=== PATIENT | male | born 1975 | race Caucasian/White ===

== ENCOUNTER → 2017-07-08 | Outpatient (CLI) | payer OTHER ==
[~2017-07-08] MED LIST: ALBUAER2 INH; CETI10TA84 PO; MONT1TAB5 PO; PRLSR20 PO; amitriptyline PO
--- NOTE | 2017-07-08 16:19 | DIAGNOSTIC IMAGING REPORT ---
ORBITS FOR MRI HISTORY: Pre-MRI pre-MRI screening. COMPARISON: None. FINDINGS: There are no radiopaque foreign bodies identified within the orbits. IMPRESSION: No radiopaque foreign bodies identified within the orbits. The above report was generated using voice recognition software. It may contain grammatical, syntax or spelling errors. Electronically signed by: Jelani Bartlett M.D. 07/08/2017 4:18 PM Dictated Date/Time: 07/08/2017 4:17 PM
--- NOTE | 2017-07-08 16:51 | DIAGNOSTIC IMAGING REPORT ---
LUMBAR SPINE W/O CONTRAST HISTORY: Pain. Radiculopathy. LOW BACK PAIN, DISC DISEASE TECHNIQUE: Multiplanar multisequence MRI of the lumbar spine was performed without the use of contrast. COMPARISON: None. FINDINGS: For the purpose of the report the L5-S1 disc space will be located on axial image 23 of 25. Significant degenerative disc change L4-L5 with a reactive edematous change of the associated endplates. Mild disc desiccation throughout the remaining components of the lumbar region. No pathologic bone marrow replacing process. No compression deformity. Instill note is made of what appears to be a partial fusion of the lower spinous processes of the thoracic region. L1-L2: No significant central canal or neural foraminal narrowing. L2-L3: No significant central canal or neural foraminal narrowing. L3-L4: No significant central canal or neural foraminal narrowing. L4-L5: Minimal broad-based disc bulge. Minimal impact anterior thecal sac. Minimal compromise of the neuroforamina. L5-S1: No significant central canal or neural foraminal narrowing. IMPRESSION: 1. Minimal broad-based disc bulge L4-L5 with minimal impact anterior thecal sac. 2. Minimal narrowing of the neuroforamina bilaterally at L4-L5. 3. Considerable degenerative disc change L4-L5. 4. 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 No significant disc herniation or spinal stenosis of the lumbar region. The above report was generated using voice recognition software. It may contain grammatical, syntax or spelling errors. Electronically signed by: Jelani Bartlett M.D. 07/08/2017 4:49 PM Dictated Date/Time: 07/08/2017 4:43 PM
== END | disposition home or self-care (01) ==
LOC: C.MRIBC 15:52
PROVIDERS: ATTEND Nurse Practitioner
DX: M51.9 Unspecified thoracic, thoracolumbar and lumbosacral intervertebral disc disorder (principal); M54.5 Low back pain; M42.00 Juvenile osteochondrosis of spine, site unspecified; M51.36 Other intervertebral disc degeneration, lumbar region

== ENCOUNTER 2017-09-12 17:49 | Emergency (ER) | payer OTHER ==
[~2017-09-12] VITALS: Ht 170.2 cm; Wt 63.9 kg
[2017-09-12 17:52] VITALS: TEMP 36.7; Ht 170.2 cm; Wt 63.9 kg
[2017-09-12] MEDS ORDERED: ONDANSETRON INJ 2 MG/ML 2 ML VIAL IV STA (18:49)
--- NOTE | 2017-09-12 18:58 | EMERGENCY ROOM VISIT NOTE ---
History First contact with patient: 18:35 Chief Complaint: OTHER COMPLAINT Stated Complaint: SEVERE INFECTION IN NOSE History of Present Illness The patient is a 41 year old male who presents to the Emergency Room with complaints of an infection in his nose that has been going on for approximately 1 week. The patient saw the [facility] 4 days ago. He was prescribed Bactroban cream and Bactrim by mouth, which she has been taking with no improvement. He also feels achy. He did not take his temperature at home. He notes pus draining out of the right side of his nose. He denies any difficulty swallowing. Review of Systems 6 system review negative. Please see pertinent positives in the history of present illness section. Past Medical/Surgical History Medical Problems: (1) Asthma Family History No significant family history Social History Smoking Status: Current Every Day Smoker Alcohol Use: none Drug Use: none Occupation Status: employed Current/Historical Medications Scheduled Amitriptyline Hcl (Elavil), 100 MG PO HS Cephalexin Monohydrate (Keflex), 500 MG PO QID Cetirizine Hcl (Zyrtec), 10 MG PO HS Doxycycline Hyclate (Vibramycin), 100 MG PO BID Montelukast Sod (Montelukast Sodium), 10 MG PO HS Omeprazole (Prilosec), 20 MG PO DAILY Scheduled PRN Albuterol Hfa (Ventolin Hfa), 2 PUFFS INH Q4-6HRS PRN for SOB/Wheezing Buspirone Hcl (Buspirone Hcl), 7.5 MG PO TID PRN for Anxiety Oxycodone/Acetaminophen 5MG/325MG (Percocet 5MG/325MG), 1 TAB PO Q4H PRN for Pain Physical Exam Vital Signs Date Time Temp Pulse Resp B/P (MAP) Pulse Ox O2 Delivery O2 Flow Rate FiO2 09/12/17 22:47 69 16 126/84 98 Room Air 09/12/17 17:52 36.7 70 16 145/89 98 Room Air Physical Exam VITALS: Vitals are noted on the nurse's note and reviewed by myself. Vital signs stable. GENERAL: 41-year-old male, obviously uncomfortable,, HEAD: Normocephalic atraumatic. EYES: Pupils equal round and reactive to light and accommodation. Conjunctivae without injection, sclerae without icterus. Extraocular movements intact. NOSE: Significant erythema and edema noted to the columella of the nose extending into both nostrils. There is purulent drainage from the right naris. Turbinates are erythematous and edematous. MOUTH: Mucous membranes moist. Tonsils are not enlarged. Pharynx without erythema or exudate. Uvula midline. Airway patent. Tongue does not deviate. NECK: Supple without nuchal rigidity. Lymphadenopathy noted in the anterior cervical chain. Cervical spine is nontender. No JVD. MUSCULOSKELETAL: Strength 5/5 throughout. NEURO: Patient was alert and oriented to person place and time. Normal sensation to touch. No focal neurological deficits. Medical Decision & Procedures ER Provider Diagnostic Interpretation: CT facial bones with contrast IMPRESSION: 1. Presumed inflammatory changes involving the anterior inferior nasal septum with a possible subcentimeter intraseptal abscess. 2. No evidence of airway compromise. 3. No evidence of pathologic adenopathy. 4. No evidence of acute sinusitis. Electronically signed by: Alcides Finch M.D. 09/12/2017 8:34 PM Dictated Date/Time: 09/12/2017 8:28 PM Laboratory Results 09/12/17 19:00 Red Blood Count 4.70, Mean Corpuscular Volume 90.2, Mean Corpuscular Hemoglobin 31.1, Mean Corpuscular Hemoglobin Concent 34.4, Mean Platelet Volume 11.6, Neutrophils (%) (Auto) 60.1, Lymphocytes (%) (Auto) 21.5, Monocytes (%) (Auto) 13.9, Eosinophils (%) (Auto) 3.5, Basophils (%) (Auto) 0.8, Neutrophils # (Auto ) 7.60, Lymphocytes # (Auto) 2.72, Monocytes # (Auto) 1.76, Eosinophils # (Auto ) 0.44, Basophils # (Auto) 0.10 09/12/17 19:00 Test 09/12/17 19:00 White Blood Count 12.65 K/uL (4.8-10.8) Red Blood Count 4.70 M/uL (4.7-6.1) Hemoglobin 14.6 g/dL (14.0-18.0) Hematocrit 42.4 % (42-52) Mean Corpuscular Volume 90.2 fL (80-100) Mean Corpuscular Hemoglobin 31.1 pg (25-34) Mean Corpuscular Hemoglobin Concent 34.4 g/dl (32-36) Platelet Count 247 K/uL (130-400) Mean Platelet Volume 11.6 fL (7.4-10.4) Neutrophils (%) (Auto) 60.1 % Lymphocytes (%) (Auto) 21.5 % Monocytes (%) (Auto) 13.9 % Eosinophils (%) (Auto) 3.5 % Basophils (%) (Auto) 0.8 % Neutrophils # (Auto) 7.60 K/uL (1.4-6.5) Lymphocytes # (Auto) 2.72 K/uL (1.2-3.4) Monocytes # (Auto) 1.76 K/uL (0.11-0.59) Eosinophils # (Auto) 0.44 K/uL (0-0.5) Basophils # (Auto) 0.10 K/uL (0-0.2) RDW Standard Deviation 42.8 fL (36.4-46.3) RDW Coefficient of Variation 13.0 % (11.5-14.5) Immature Granulocyte % (Auto) 0.2 % Immature Granulocyte # (Auto) 0.03 K/uL (0.00-0.02) Anion Gap 5.0 mmol/L (3-11) Est Creatinine Clear Calc Drug Dose 81.5 ml/min Estimated GFR () 97.5 Estimated GFR (Non- 84.1 BUN/Creatinine Ratio 9.5 (10-20) Calcium Level 9.5 mg/dl (8.5-10.1) Medications Administered Medications (Trade) Dose Ordered Sig/Anne Route Start Time Stop Time Status Last Admin Dose Admin Morphine Sulfate (MoRPHine SULFATE INJ) 4 mg ONE ONCE IV 09/12/17 19:00 09/12/17 19:01 DC 09/12/17 19:01 4 MG Ondansetron HCl (Zofran Inj) 4 mg NOW STAT IV 09/12/17 18:49 09/12/17 18:54 DC 09/12/17 19:01 4 MG Ketorolac Tromethamine (Toradol Inj) 30 mg NOW STAT IV 09/12/17 21:21 09/12/17 21:22 DC 09/12/17 21:39 30 MG Lidocaine HCl (Buffered Lidocaine 1% Inj) 20 ml NOW ONCE INFIL 09/12/17 21:30 10/20/17 21:31 DC 09/12/17 21:40 20 ML Ceftriaxone Sodium (Rocephin Inj) 1 gm NOW STAT IV 09/12/17 21:21 09/12/17 21:22 DC 09/12/17 21:40 1 GM Oxycodone/ Acetaminophen (Percocet 5/ 325MG Home Pack) 1 homepack UD ONCE PO 09/12/17 22:45 09/12/17 22:46 DC 09/12/17 22:42 1 HOMEPACK Oxycodone/ Acetaminophen (Percocet 5-325mg Tab) 2 tab NOW STAT PO 09/12/17 22:31 09/12/17 22:32 DC 09/12/17 22:38 2 TAB Procedure I examined the patient. Verbal consent was obtained to perform the procedure. After saline and Betadine cleansing and 2 mL of 1% buffered lidocaine anesthesia, the abscess was incised with a number 11 scalpel blade. A large amount of purulent material was released with more expressed by pressure. A swab was obtained for culture. 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 The abscess cavity was then copiously irrigated with sterile saline under pressure. The area was too small for packing. ED Course Patient was seen and examined Vital signs including blood pressure were reviewed medications list was verified with patient Labs were obtained, and a saline lock was established The patient was treated with morphine and Zofran for symptoms. Imaging was performed and reviewed. The patient was also seen by my supervising physician. An incision and drainage was performed. Please see my procedure note. The patient was given 2 Percocet for pain. He was given 1 dose of ceftriaxone I reviewed discharge instructions the patient. They voiced understanding and had no further questions. Medical Decision Differential diagnosis: Septal cellulitis, facial cellulitis, abscess, impetigo, This patient is a 41-year-old male presents emergency department with significant swelling and erythema to the nose. Labs revealed leukocytosis. Given the amount of swelling and erythema, I opted to CT the face to assess for abscess or ascending cellulitis. This revealed a subcentimeter abscess in the inferior portion of the nasal septum. The area was incised and drained. A culture was taken. The patient has had minimal response to Bactroban and Bactrim. It is possible that this is a strep infection. He was given 1 dose of Rocephin. His Bactrim was changed to doxycycline. Keflex was also added. This should give him good strep and MRSA coverage. A copious amount of purulent material was also expressed. The patient will need follow-up with ENT as soon as possible. He was given a short course of narcotics for pain. He agrees to return here with any new or worsening symptoms. This chart was completed in part utilizing [employer]click Speech Voice Recognition software. Attempts were made to minimize the grammatical errors, random word insertions, pronoun errors and incomplete sentences. Any formal questions or concerns about the content, text or information contained within the body of this dictation should be directly addressed to the provider for clarification. Medication Reconcilliation Current Medication List: was personally reviewed by me Blood Pressure Screening Patient's blood pressure: Elevated blood pressure Blood pressure disposition: Elevated BP felt to be situational Impression Primary Impression: Facial abscess Additional Impression: Nasal septal abscess Departure Information Dispostion Home / Self-Care Condition GOOD Prescriptions Oxycodone/Acetaminophen 5MG/325MG (PERCOCET 5MG/325MG) Tab 1 TAB PO Q4H Y for Pain, #10 TAB For Initial Treatment Prov: Deann Rubin PA-C 09/12/17 Doxycycline Hyclate (VIBRAMYCIN) 100 Mg Cap 100 MG PO BID for 7 Days, #14 CAP Prov: Deann Rubin PA-C 09/12/17 Cephalexin Monohydrate (Keflex) 500 Mg Cap 500 MG PO QID for 7 Days, #28 CAP Prov: Deann Rubin PA-C 09/12/17 Referrals Bella Jade C.R.N.P (PCP) Elizabeth Lofton M.D. Patient Instructions My [facility] Additional Instructions Please try to keep the area clean. Use gauze as needed for continued drainage. Please stop bacitracin and Mupirocin Please begin doxycycline 1 tab twice daily for 7 days Please begin Keflex 1 tab every 6 hours for 7 days. Ibuprofen 600 mg every 6 hours Percocet 1-2 tabs every 4 hours for severe pain. Do not drink alcohol or drive while taking this medication. This may be taken with ibuprofen, but avoid Tylenol. Please call Dr. Lofton, the ENT doctor on Friday for a follow-up appointment. If you have difficulty getting an appointment, please call back to the emergency department.[phone] Please return to the emergency department with any new or worsening symptoms such as increased redness, swelling, fever or difficulty with your vision Problem Qualifiers
[2017-09-12] MEDS ORDERED: OPTIRAY 320 IV PRN (19:00)
[2017-09-12] MEDS ORDERED: MoRPHine SULFATE 4 MG/ML 1 ML CARP\\VIAL IV ONE (19:00)
[2017-09-12] MEDS ORDERED: BUSP1TAB46 PO (19:01)
[2017-09-12] MEDS ORDERED: CETI10TA10 PO (19:01)
[2017-09-12] MEDS ORDERED: SNG10 PO (19:01)
[2017-09-12] MEDS ORDERED: AMIT100T2 PO (19:01)
[2017-09-12] MEDS ORDERED: VNTHFA/IN INH (19:01)
[2017-09-12] MEDS ORDERED: OMEP20CA9 PO (19:01)
[2017-09-12 19:18] LABS: BASO % 0.8 %; COMPLETE YES; EOS % 3.5 %; HEMATOCRIT 42.4 % (42-52); IG% 0.2 %; LYMPH % 21.5 %; LYMPH ABS # 2.72 K/uL (1.2-3.4); MEAN CELL VOLUME 90.2 fL (80-100); MEAN CORPUSCULAR HEMOGLOBIN 31.1 pg (25-34); MEAN CORPUSCULAR HGB CONC 34.4 g/dl (32-36); MEAN PLATELET VOLUME 11.6 fL (7.4-10.4); MONO % 13.9 %; NEUT % 60.1 %; PLATELET COUNT 247 K/uL (130-400); WHITE BLOOD COUNT 12.65 K/uL (4.8-10.8)
[2017-09-12 19:29] LABS: BUN/CREATININE RATIO 9.5 (10-20); CALCIUM 9.5 mg/dl (8.5-10.1); CREATININE 1.1 mg/dl (0.60-1.40)
--- NOTE | 2017-09-12 20:36 | DIAGNOSTIC IMAGING REPORT ---
CT FACIAL-MAXILLOFACIAL WITH CT DOSE: 143.89 mGy.cm CLINICAL HISTORY: severe infection in nasal septum TECHNIQUE: The patient was scanned in a dynamic helical fashion during intravenous administration of 103 cc Optiray 320. Coronal reformatted images were acquired A dose lowering technique was utilized adhering to the principles of ALARA. COMPARISON STUDY: None. FINDINGS: No salivary gland masses are visualized. No mucosal space masses are visualized. The visualized portions of the intracranial contents are unremarkable. No orbital masses are visualized. There is no pathologic adenopathy. There is no evidence of airway compromise. There is no evidence of acute sinusitis. There is thickening of the anterior nasal septum. There is a small fluid collection within the anterior inferior nasal septum. This could represent an abscess IMPRESSION: 1. Presumed inflammatory changes involving the anterior inferior nasal septum with a possible subcentimeter intraseptal abscess. 2. No evidence of airway compromise. 3. No evidence of pathologic adenopathy. 4. No evidence of acute sinusitis. Electronically signed by: Alcides Finch M.D. 09/12/2017 8:34 PM Dictated Date/Time: 09/12/2017 8:28 PM
[2017-09-12] MEDS ORDERED: CEFTRIAXONE SOD INJ 1 GM ADDVIAL IV STA (21:21)
[2017-09-12] MEDS ORDERED: KETOROLAC TROMETHAMINE 30 MG/ML VIAL IV STA (21:21)
[2017-09-12] MEDS ORDERED: XYLOCAINE 1%/SOD BICARB 20 ML VIAL INFIL ONE (21:30)
[2017-09-12] MEDS ORDERED: OXYCODONE/ACETAMINOPHEN 5-325 TAB PO STA (22:31)
[2017-09-12] MEDS ORDERED: CEPH500C PO (22:37)
[2017-09-12] MEDS ORDERED: DOXY100C PO (22:37)
[2017-09-12] MEDS ORDERED: OXYC-57 PO (22:38)
[2017-09-12] MEDS ORDERED: PERCOCET HOME PACK PO ONE (22:45)
[2017-09-12 22:47] VITALS: BP 126/84; PULSE 69; O2SAT 98
== END 2017-09-12 23:05 | disposition home or self-care (01) ==
LOC: C.EDB 17:51 → C.EDD 23:05
DX: J34.0 Abscess, furuncle and carbuncle of nose (principal); J45.909 Unspecified asthma, uncomplicated; F17.200 Nicotine dependence, unspecified, uncomplicated

== ENCOUNTER 2018-02-24 11:43 | Emergency (ER) | payer OTHER ==
[~2018-02-24] VITALS: Ht 170.2 cm; Wt 64.5 kg
[~2018-02-24 11:43] MED LIST changes: -ALBUAER2 INH; +AMIT100T2 PO; +BUSP1TAB46 PO; +CETI10TA10 PO; -CETI10TA84 PO; -MONT1TAB5 PO; +OMEP20CA9 PO; +OXYC-57 PO; -PRLSR20 PO; +SNG10 PO; +VNTHFA/IN INH; -amitriptyline PO
[2018-02-24 11:46] VITALS: TEMP 36.5; Ht 170.2 cm; Wt 64.5 kg
[2018-02-24] MEDS ORDERED: XYLOCAINE 1%/SOD BICARB 20 ML VIAL INFIL ONE (12:00)
--- NOTE | 2018-02-24 12:55 | DIAGNOSTIC IMAGING REPORT ---
L FINGER(S) MIN 2 VIEWS ROUTINE CLINICAL HISTORY: 42 years-old Male presenting with L 5th finger trauma. TECHNIQUE: Frontal, oblique, and lateral views of the left fifth finger were obtained. COMPARISON: None. FINDINGS: Nondisplaced longitudinally/obliquely oriented fracture of the tuft of the distal phalanx of the fifth finger. There is the greatest degree of cortical step-off along the volar aspect. Mild associated soft tissue swelling of the distal left fifth finger. No additional bony abnormality. IMPRESSION: Nondisplaced fracture of the tuft of the distal phalanx of the left fifth finger. Electronically signed by: Walter Bell M.D. 02/24/2018 12:53 PM Dictated Date/Time: 02/24/2018 12:52 PM
[2018-02-24] MEDS ORDERED: OXYC1TAB3 PO (13:05)
[2018-02-24 13:18] VITALS: BP 122/92; PULSE 72; O2SAT 98
--- NOTE | 2018-02-24 13:21 | EMERGENCY ROOM VISIT NOTE ---
History First contact with patient: 11:55 Chief Complaint: FINGER PAIN Stated Complaint: SEVERLY PINCHED LEFT PINKY FINGER History of Present Illness The patient is a 42 year old male who presents to the Emergency Room with complaints of trauma to the tip of his left fifth finger. The patient reports that he was using a saws all when his finger got pinched between the attachment plate and body of the cells all. The patient denies any significant bleeding. He rates his discomfort a 10 out of 10. He denies any pain extending into the middle or base of the finger. He reports that the fingertip feels numb. The patient is right-hand dominant. Tetanus immunization is up-to-date. Review of Systems 10 system review was performed and was negative except for pertinent positives and negatives as indicated in history of present illness Past Medical/Surgical History Medical Problems: (1) Asthma Medical Problems: (1) Asthma (2) Asthma, Unspecified (3) Fibromyalgia (4) Scheuermanns disease Family History No significant family history Social History Smoking Status: Current Every Day Smoker Alcohol Use: none Drug Use: none Occupation Status: employed Current/Historical Medications Scheduled Cetirizine Hcl (Zyrtec), 10 MG PO HS Montelukast Sod (Montelukast Sodium), 10 MG PO HS Omeprazole (Prilosec), 20 MG PO DAILY Scheduled PRN Albuterol Hfa (Ventolin Hfa), 2 PUFFS INH Q4-6HRS PRN for SOB/Wheezing Oxycodone Ir (Roxicodone Ir), 1-2 TAB PO Q4H PRN for Pain Physical Exam Vital Signs Date Time Temp Pulse Resp B/P (MAP) Pulse Ox O2 Delivery O2 Flow Rate FiO2 02/24/18 11:46 36.5 65 20 140/83 99 Room Air Physical Exam CONSTITUTIONAL: Healthy and well nourished. Alert and oriented X 3 with positive affect. Patient appears in moderately severe discomfort. HEENT: Normocephalic, atraumatic. Pupils equal, round and reactive. NECK: Full active range of motion without discomfort. MUSCULOSKELETAL: Examination of the left hand shows that the patient chews his nails. He has a very small superficial avulsion injury, measuring 2 cm in diameter. This injury is distal to the edge of the nail plate. The patient also has ecchymosis on the digital pad with no open wounds. The patient has no other focal tenderness to palpation of the DIP or PIP joint. Capillary refill is brisk and less than 2 seconds. On closer exam, using a sterile swab there was no extension of this wound into the underlying subcutaneous space. INTEGUMENTARY: No rash or other significant dermatologic conditions noted. NEUROLOGIC: No focal neurologic deficits noted. Left fifth fingertip is hyperesthetic. Medical Decision & Procedures ER Provider Diagnostic Interpretation: My interpretation of left fifth finger x-rays shows a nondisplaced tuft fracture. Radiologist report is as follows: L FINGER(S) MIN 2 VIEWS ROUTINE CLINICAL HISTORY: 42 years-old Male presenting with L 5th finger trauma. TECHNIQUE: Frontal, oblique, and lateral views of the left fifth finger were obtained. COMPARISON: None. FINDINGS: Nondisplaced longitudinally/obliquely oriented fracture of the tuft of the distal phalanx of the fifth finger. There is the greatest degree of cortical step-off along the volar aspect. Mild associated soft tissue swelling of the distal left fifth finger. No additional bony abnormality. IMPRESSION: Nondisplaced fracture of the tuft of the distal phalanx of the left fifth finger. ED Course Patient history and physical exam were performed. Nurse's notes were reviewed. Vital signs were reviewed and were normal. The patient does appear in notable discomfort and distress. I suggested performing a digital block, although the patient reports that he is horrified of needles. Digital block was administered using buffered 1% lidocaine. The patient had complete relief within approximately 3 minutes, and was happy that the digital block was administered. X-rays of the left fifth finger shows a nondisplaced tuft fracture. Because the wound does not extend into the underlying subcutaneous space, I will defer antibiotic treatment. The wound also does not require any type of primary closure. The patient was encouraged to keep the wound covered with an antibiotic ointment and dressing. Ice and elevation for swelling and pain. Ibuprofen and Tylenol in alternating fashion for baseline pain relief. The patient was provided a prescription for OxyIR 5 mg, dispense #15 with no refills. The patient was instructed to avoid drinking alcohol or driving while taking OxyIR. The patient may follow-up with his PCP or orthopedics as needed for any further wound concerns. The patient was happy with plan of care, voiced understanding of all discharge instructions, and denied any pain at the conclusion of my exam. Medical Decision Impression Primary Impression: Fracture of phalanx of left little finger Departure Information Dispostion Home / Self-Care Prescriptions Oxycodone Ir (Roxicodone Ir) 5 Mg Tab 1-2 TAB PO Q4H Y for Pain, #15 TAB For Initial Treatment Prov: Papa Calderon PA 02/24/18 Forms HOME CARE DOCUMENTATION FORM, IMPORTANT VISIT INFORMATION Patient Instructions My [facility] Additional Instructions Keep wound covered with an antibiotic ointment and dressing until it heals ( looks dry). Intermittently apply ice to the fingertip, and elevate as needed for pain. Ibuprofen 800 mg and/or Tylenol 1000 mg every 8 hours. You may also alternate these medications for more effective pain relief: Ibuprofen --4 HRS--> Tylenol --4 HRS--> ibuprofen --4 HRS--> Tylenol .... OxyIR as needed for worse pain. Do not drink alcohol or drive while taking OxyIR. Follow-up with your PCP or orthopedics (Dr. Dennison) as needed for any further concerns. Problem Qualifiers Primary Impression: Fracture of phalanx of left little finger Encounter type: initial encounter Fracture type: closed Phalanx: distal Fracture alignment: nondisplaced Qualified Codes: S62.667A - Nondisplaced fracture of distal phalanx of left little finger, initial encounter for closed fracture
== END 2018-02-24 13:18 | disposition home or self-care (01) ==
LOC: C.EDB 11:45 → C.EDD 13:18
DX: S62.667A Nondisplaced fracture of distal phalanx of left little finger, initial encounter for closed fracture (principal); W31.2XXA Contact with powered woodworking and forming machines, initial encounter; Y92.9 Unspecified place or not applicable; J45.909 Unspecified asthma, uncomplicated; M79.7 Fibromyalgia; M42.00 Juvenile osteochondrosis of spine, site unspecified; F17.210 Nicotine dependence, cigarettes, uncomplicated; Z79.899 Other long term (current) drug therapy

== ENCOUNTER 2018-04-04 12:24 | Emergency (ER) | payer OTHER ==
[~2018-04-04] VITALS: Ht 167.6 cm; Wt 62.0 kg
[~2018-04-04 12:24] MED LIST changes: -AMIT100T2 PO; -BUSP1TAB46 PO; -OXYC-57 PO; +OXYC1TAB3 PO
[2018-04-04 12:35] VITALS: TEMP 36.7; Ht 167.6 cm; Wt 62.0 kg
[2018-04-04] MEDS ORDERED: FLUT1INH INH (12:51)
[2018-04-04] MEDS ORDERED: SULF800T23 PO (13:00)
[2018-04-04] MEDS ORDERED: CEPH500C PO (13:00)
--- NOTE | 2018-04-04 13:00 | EMERGENCY ROOM VISIT NOTE ---
History Report prepared by Mitzi: Unruly Ellison Under the Supervision of: Dr. David Anderson D.O. First contact with patient: 12:38 Chief Complaint: INFECTION Stated Complaint: BUMP ON NECK - SPIDER BITE OR INGROWN HAIR History of Present Illness The patient is a 42 year old male who presents to the Emergency Room with complaints of a worsening infection on his neck for the past week. He rates his discomfort as an 8/10 in severity. The patient states that it looked like a pimple a week ago, and he is unsure if it is a spider bite or an ingrown hair. He states that he has been using antibiotic soap and Neosporin. The patient states that he puts a bandage on it while at work, and he notes that is is spreading to his jaw and lower neck. He denies any problems or sores in his mouth. Source of History: patient Onset: the past week Position: neck Symptom Intensity: 8/10 Quality: other (infection) Timing: worsening Note: Associated symptoms: Spreading to his jaw and lower neck Review of Systems See HPI for pertinent positives & negatives. A total of 10 systems reviewed and were otherwise negative. Past Medical & Surgical Medical Problems: (1) Asthma (2) Asthma, Unspecified (3) Fibromyalgia (4) Scheuermanns disease Family History No significant family history Social History Smoking Status: Current Every Day Smoker Alcohol Use: none Drug Use: none Occupation Status: employed Current/Historical Medications Scheduled Cephalexin Monohydrate (Keflex), 500 MG PO QID Cetirizine Hcl (Zyrtec), 10 MG PO HS Fluticasone Furoate-Vilanterol (Breo Ellipta), 1 PUFF INH DAILY Montelukast Sod (Montelukast Sodium), 10 MG PO HS Omeprazole (Prilosec), 20 MG PO DAILY Sulfa/Trimethoprim (Bactrim Ds 800MG/160MG), 1 TAB PO BID Scheduled PRN Albuterol Hfa (Ventolin Hfa), 2 PUFFS INH Q4-6HRS PRN for SOB/Wheezing Allergies Coded Allergies: Morphine (Unverified Adverse Reaction, Intermediate, "FELT LIKE I WAS CRAWLING OUT OF MY SKIN", 04/04/18) Physical Exam Vital Signs Date Time Temp Pulse Resp B/P (MAP) Pulse Ox O2 Delivery O2 Flow Rate FiO2 04/04/18 12:35 36.7 74 18 143/95 96 Room Air Physical Exam CONSTITUTIONAL/VITAL SIGNS: Reviewed / noted above. GENERAL: Non-toxic in appearance. INTEGUMENTARY: Warm, dry, and [place]. HEAD: Normocephalic. EYES: without scleral icterus or trauma. ENT/OROPHARYNX: clear and moist. No intraoral abnormalities. LYMPHADENOPATHY/NECK: Some mild erythema and swelling to the left submandibular region with minimal surrounding erythema. Tender to palpation without fluctuance. Is supple without meningismus. RESPIRATORY: Lungs clear and equal. CARDIOVASCULAR: Regular rate and rhythm. GI/ABDOMEN: Soft and nontender. No organomegaly or pulsatile mass. No rebound or guarding. Normal bowel sounds. EXTREMITIES: Warm and well perfused. BACK: No CVA tenderness. NEUROLOGICAL: Intact without focal deficits. PSYCHIATRIC: normal affect. MUSCULOSKELETAL: Normally developed with good muscle tone. Medical Decision & Procedures Medications Administered Medications (Trade) Dose Ordered Sig/Anne Route Start Time Stop Time Status Last Admin Dose Admin Cephalexin Monohydrate (Keflex Cap) 500 mg NOW ONCE PO 04/04/18 13:15 04/04/18 13:16 DC 04/04/18 13:10 500 MG Trimethoprim/ Sulfamethoxazole (Septra Ds 800/ 160MG Tab) 1 tab NOW ONCE PO 04/04/18 13:15 04/04/18 13:16 DC 04/04/18 13:10 1 TAB Oxycodone/ Acetaminophen (Percocet 5-325mg Tab) 1 tab NOW STAT PO 04/04/18 13:01 04/04/18 13:02 DC 04/04/18 13:11 1 TAB ED Course 1238: Previous medical records were reviewed. The patient was evaluated in room C7. A complete history and physical examination was performed. Medical Decision Differential diagnosis: Etiologies such as cellulitis, abscess, MRSA infection, DVT, necrotizing fasciitis, dermatitis, drug eruption, as well as others were entertained.. This is a 42-year-old male who presents to the ED with a chief complaint of neck redness, swelling or tenderness. The patient states that the symptoms started about 5 or 6 days ago with a small pimple on his left neck just under the chin. He reports that he has squeezed some pus out of it. The patient reports that his pain has increased since that time and it is not getting better. He has been using Neosporin on it. He denies any fevers. No nausea vomiting. No headaches. His exam reveals a reddened area about the size of a quarter in the left submandibular region. There is minimal surrounding redness. It is tender but not fluctuant. There is no intraoral findings. The patient was offered IV antibiotics but declined. He was given Keflex and Bactrim. There is no expressible discharge from the wound culture. The patient will return if things worsen. Impression Primary Impression: Cellulitis Scribe Attestation The scribe's documentation has been prepared under my direction and personally reviewed by me in its entirety. I confirm that the note above accurately reflects all work, treatment, procedures, and medical decision making performed by me. Departure Information Dispostion Home / Self-Care Prescriptions Sulfa/Trimethoprim (Bactrim Ds 800MG/160MG) Tab 1 TAB PO BID, #20 TAB Prov: David Anderson D.O. 04/04/18 Cephalexin Monohydrate (Keflex) 500 Mg Cap 500 MG PO QID, #40 CAP Prov: David Anderson D.O. 04/04/18 Referrals Bella Jade C.R.N.P (PCP) Patient Instructions My [facility] Additional Instructions Keflex and Bactrim as prescribed. Follow-up with your doctor for further care and evaluation in 2-4 days. Return to the emergency department for worsening or new symptoms or any concerns. You have been examined and treated today on an emergency basis only. This is not a substitute for, or an effort to provide, complete comprehensive medical care. It is impossible to recognize and treat all injuries or illnesses in a single emergency department visit. It is therefore important that you follow up closely with your doctor. Call as soon as possible for an appointment.
[2018-04-04] MEDS ORDERED: OXYCODONE/ACETAMINOPHEN 5-325 TAB PO STA (13:01)
[2018-04-04] MEDS ORDERED: SULFAMETHOXAZOLE/TRIMETHOPRIM DS 800/160MG TAB PO ONE (13:15)
[2018-04-04] MEDS ORDERED: CEPHALEXIN MONOHYDRATE 250 MG CAP PO ONE (13:15)
[2018-04-04 13:52] VITALS: BP 116/75; PULSE 61; O2SAT 97
== END 2018-04-04 13:56 | disposition home or self-care (01) ==
LOC: C.EDB 12:25 → C.EDC 13:56
DX: L03.221 Cellulitis of neck (principal); J45.909 Unspecified asthma, uncomplicated; M79.7 Fibromyalgia; M42.00 Juvenile osteochondrosis of spine, site unspecified; F17.210 Nicotine dependence, cigarettes, uncomplicated; Z88.5 Allergy status to narcotic agent

== ENCOUNTER 2018-04-06 06:59 | Emergency (ER) | payer OTHER ==
[~2018-04-06] VITALS: Ht 167.6 cm; Wt 63.0 kg
[~2018-04-06 06:59] MED LIST changes: +CEPH500C PO; +FLUT1INH INH; +SULF800T23 PO
[2018-04-06 07:05] VITALS: TEMP 36.7; Ht 167.6 cm; Wt 63.0 kg
[2018-04-06] MEDS ORDERED: LIDOCAINE 1% BUFFERED INJ 5 ML VIAL INFIL ONE (07:45)
--- NOTE | 2018-04-06 08:05 | EMERGENCY ROOM VISIT NOTE ---
History Report prepared by Mitzi: Jess Catalan Under the Supervision of: Dr. David Anderson D.O. First contact with patient: 07:09 Chief Complaint: INFECTION Stated Complaint: INFECTION ON NECK History of Present Illness The patient is a 42 year old male who presents to the Emergency Room with complaints of a worsening infection starting 2 days ago. The patient states that he was at the ED before for the infection on his neck and was given antibiotics. He reports that he woke up this morning and it was dripping pus. He states that he has been using a warm cloth on it and it has offered some relief. The patient currently rates his pain as a 9/10 in severity. Source of History: patient Onset: 2 days ago Position: neck Symptom Intensity: 9/10 Quality: other (infection) Timing: worsening Modifying Factors (Relieving): other (warm cloths) Note: The patient complains of the infection dripping pus. Review of Systems See HPI for pertinent positives & negatives. A total of 10 systems reviewed and were otherwise negative. Past Medical & Surgical Medical Problems: (1) Asthma (2) Asthma, Unspecified (3) Fibromyalgia (4) Scheuermanns disease Family History No significant family history Social History Smoking Status: Current Every Day Smoker Alcohol Use: none Drug Use: none Marital Status: single Housing Status: lives alone Occupation Status: employed Current/Historical Medications Scheduled Cephalexin Monohydrate (Keflex), 500 MG PO QID Cetirizine Hcl (Zyrtec), 10 MG PO HS Fluticasone Furoate-Vilanterol (Breo Ellipta), 1 PUFF INH DAILY Montelukast Sod (Montelukast Sodium), 10 MG PO HS Omeprazole (Prilosec), 20 MG PO DAILY Sulfa/Trimethoprim (Bactrim Ds 800MG/160MG), 1 TAB PO BID Scheduled PRN Albuterol Hfa (Ventolin Hfa), 2 PUFFS INH Q4-6HRS PRN for SOB/Wheezing Allergies Coded Allergies: Morphine (Unverified Adverse Reaction, Intermediate, "FELT LIKE I WAS CRAWLING OUT OF MY SKIN", 04/06/18) Physical Exam Vital Signs Date Time Temp Pulse Resp B/P (MAP) Pulse Ox O2 Delivery O2 Flow Rate FiO2 04/06/18 07:05 36.7 72 20 131/90 99 Room Air Physical Exam CONSTITUTIONAL/VITAL SIGNS: Reviewed / noted above. GENERAL: Non-toxic in appearance. INTEGUMENTARY: Warm, dry, and [employer]. HEAD: Normocephalic. EYES: without scleral icterus or trauma. ENT/OROPHARYNX: clear and moist. LYMPHADENOPATHY/NECK: Is supple without lymphadenopathy or meningismus. Quarter sized abscess on the left anterior neck and his submandibular region that is expressing pus. Appears similar to 2 days ago with the exception of that puss is now draining from the wound. Surrounding erythema is less than 2 days ago. RESPIRATORY: Lungs clear and equal. CARDIOVASCULAR: Regular rate and rhythm. GI/ABDOMEN: Soft and nontender. No organomegaly or pulsatile mass. No rebound or guarding. Normal bowel sounds. EXTREMITIES: Warm and well perfused. BACK: No CVA tenderness. NEUROLOGICAL: Intact without focal deficits. PSYCHIATRIC: normal affect. MUSCULOSKELETAL: Normally developed with good muscle tone. Medical Decision & Procedures Procedure Incision & Drainage Indication: Abscess. Location: Left Anterior Neck Verbal consent was obtained after the risks and benefits were explained, including but not limited to bleeding, scarring, infection, pain, and bone/joint /nerve damage. At this time, the risks of the procedure are less than the risks of NOT performing the procedure. A time out was taken and the correct patient and site identified. The skin was prepped with betadine and a sterile field set. The wound was anesthetized with 1 ml of 1% lidocaine without epinephrine. The abscess cavity was entered with a number 11 blade and purulent material expressed. Debridement was not performed. Sterile dressing applied. Detailed wound care instructions and signs and symptoms of worsening infection reviewed with the patient. No complications and the patient tolerated the procedure well. ED Course 0728: Previous medical records were reviewed. The patient was evaluated in room B2. A complete history and physical examination was performed. 0744: I reevaluated the patient and performed an I&D at this time. I discussed the results and findings with the patient. He verbalized agreement of the treatment plan. The patient was discharged home. 0745: Ordered Lidocaine HCl 1 ml INFIL. 0750: I&D wound. Percocet and Percocet homepack ordered. Medical Decision Differential diagnosis: Etiologies such as cellulitis, abscess, MRSA infection, DVT, necrotizing fasciitis, dermatitis, drug eruption, as well as others were entertained. This is a 42-year-old male who presents to the ED with a chief complaint of abscess in the left anterior neck. The patient was seen 2 days ago by myself. The exam was noted above. Exam is similar to when I saw him 2 days ago with the exception of minimal surrounding erythema around the indurated area. Today the area is draining some purulent drainage. The patient feels that the symptoms happen after shaving and might be related to an infected hair. The patient has been on Keflex and Bactrim for 2 days now. When I saw him originally, there is no drainage. Today there is drainage. A culture has been sent. After evaluating the patient, again the patient did not want IV antibiotics. He did except I&D of the wound. Lidocaine was used to anesthetize the area and a 1-2 cm vertical incision was made over the abscess. Purulent drainage was obtained and removed from the abscess. The patient tolerated the procedure well. He will continue his Keflex and Bactrim. He was given a referral to Dr. Osborne from ENT for follow-up. The patient does not appear septic or toxic at this time. There is no findings to suggest Adrian's angina. This appears to be a localized abscess in the left superior anterior neck region. Does not extend into the mouth. Medication Reconcilliation Current Medication List: was personally reviewed by me Blood Pressure Screening Patient's blood pressure: Normal blood pressure Blood pressure disposition: Did not require urgent referral Impression Primary Impression: Abscess, neck Scribe Attestation The scribe's documentation has been prepared under my direction and personally reviewed by me in its entirety. I confirm that the note above accurately reflects all work, treatment, procedures, and medical decision making performed by me. Departure Information Dispostion Home / Self-Care Referrals Bella aJde C.R.N.P (PCP) Miguel A Osborne D.O. Forms HOME CARE DOCUMENTATION FORM, IMPORTANT VISIT INFORMATION, WORK / SCHOOL INSTRUCTIONS Patient Instructions My [facility] Additional Instructions Continue Keflex and Bactrim. Continue warm compresses. Follow-up with Dr. Osborne from ENT. Call for an appointment today.
[2018-04-06] MEDS ORDERED: OXYCODONE/ACETAMINOPHEN 5-325 TAB PO ONE (08:15)
[2018-04-06] MEDS ORDERED: PERCOCET HOME PACK PO ONE (08:15)
[2018-04-06 08:25] VITALS: BP 115/82; PULSE 60; O2SAT 99
--- NOTE | 2018-04-08 18:01 | Pharmacy Progress Note ---
ED Pharmacist Culture FollowUp Date of Service: April 08, 2018. Patient was sent home with prescriptions for Bactrim and cephalexin - Bactrim will cover the MRSA isolated from his abscess culture. Called patient. Informed of MRSA result and need to complete course with Bactrim. Counseled that cephalexin could be discontinued. Emphasized multiple times during our conversation which antibiotic could be stopped and which was still needed. Patient reported that the wound was improving. Counseled that he should follow up with his PCP as outpatient and that he should be seen at PCP or ED if the wound were to worsen (while on Bactrim or after Bactrim is discontinued). Patient acknowledged understanding. Patient asked where he could have acquired this infection - counseled that it is often a hospital associated infection, however there is also MRSA in the community now as well. Patient asked about being contagious - counseled that MRSA skin infections can be passed via physical contact.
== END 2018-04-06 08:26 | disposition home or self-care (01) ==
LOC: C.EDB 07:00
DX: L02.11 Cutaneous abscess of neck (principal); J45.909 Unspecified asthma, uncomplicated; M79.7 Fibromyalgia; M42.00 Juvenile osteochondrosis of spine, site unspecified; F17.200 Nicotine dependence, unspecified, uncomplicated; Z79.51 Long term (current) use of inhaled steroids; Z88.5 Allergy status to narcotic agent